=== PATIENT | female | born 1955 | race Caucasian/White ===

== ENCOUNTER 2019-11-08 08:27 | Inpatient (IN) | payer BC ==
[2019-11-08] MEDS ORDERED: cefTRIAXone\\ROCEPHIN 2 GM VIAL ONE (08:46)
[2019-11-08 09:46] LABS: CKMB 2.1 ng/mL (0-6.6)
[2019-11-08] MEDS ORDERED: Diabetic Tussin 200 MG/10 ML UDCUP PO PRN (10:59)
[2019-11-08] MEDS ORDERED: Metoclopramide HCl 10 MG/2 ML VIAL IVP PRN (10:59)
[2019-11-08] MEDS ORDERED: Loperamide HCl 2 MG CAP PO PRN (10:59)
[2019-11-08] MEDS ORDERED: Sodium Chloride 0.65% Nasal 44 ML BOT EA NARE PRN (10:59)
[2019-11-08] MEDS ORDERED: Nitroglycerin 0.4 MG TAB (25 Tab Bottle) SL PRN (10:59)
[2019-11-08] MEDS ORDERED: Cepastat Lozenges 1 LOZ PO PRN (10:59)
[2019-11-08] MEDS ORDERED: Senokot S 8.6-50 MG TAB PO PRN (10:59)
[2019-11-08] MEDS ORDERED: Loratadine 10 MG TAB PO PRN (10:59)
[2019-11-08] MEDS ORDERED: Calcium Carbonate 500 MG ChewTAB PO PRN (10:59)
[2019-11-08] MEDS ORDERED: Bisacodyl 10 MG SUPP PR PRN (10:59)
[2019-11-08] MEDS ORDERED: Artificial Tears 18 DROP/0.9 ML EA EYE PRN (10:59)
[2019-11-08 11:07] VITALS: BMI 29.9
[2019-11-08 12:15] LABS: Troponin I 0.197 ng/mL (< 0.028)
[2019-11-08] MEDS ORDERED: Azithromycin 500 MG in Sodium Chloride 0.9% 250 ML 250 ML IVPB SCH (13:00)
--- NOTE | 2019-11-08 14:09 | HP ---
PRIMARY CARE PHYSICIAN: Dr. Partha Crowley. REASON FOR ADMISSION: Transferred from [facility] for pneumonia. HISTORY OF PRESENT ILLNESS: A 64-year-old female with past medical history of hypertension and tobacco abuse disorder, who presented to [facility] for fever, cough, and shortness of breath. Over there, the patient was having tachycardia and she was saturating 90% on 4 L nasal cannula. The patient has slightly elevated D-dimer, and that is why a CT angiography was obtained, which was negative for pulmonary embolism, but it did show coronary artery calcification, pulmonary hypertension, and bronchial wall thickening consistent with bronchiolitis. The patient was treated with antibiotic therapy and respiratory therapy, and subsequently, she was transferred to our hospital for higher level of care. The patient was not complaining of any chest pain, but she was sick for almost 3 days. Prior to that, the patient did not have any upper or lower respiratory symptoms, and she does not have any flu vaccine or pneumonia vaccination, and she continued to smoke about 1 pack per day. She is not aware of any her oxygen saturation at home, but in the emergency room, CT angiography showed pulmonary hypertension. She denies any lower extremity edema, orthopnea, or PND. REVIEW OF SYSTEMS: CONSTITUTIONAL: Negative for weight loss or gain, ability to conduct usual activities. SKIN: Negative for rash, itching. EYES: Negative for double vision, pain. ENT/MOUTH: Negative for nose bleeding, neck stiffness, pain, tenderness. CARDIOVASCULAR: Negative for palpitations, dyspnea on exertion, orthopnea. RESPIRATORY: Negative for shortness of breath, wheezing, cough, hemoptysis, fever or night sweats. GASTROINTESTINAL: Negative for poor appetite, abdominal pain, heartburn, nausea, vomiting, constipation, or diarrhea. GENITOURINARY: Negative for urgency, frequency, dysuria, nocturia. MUSCULOSKELETAL: Negative for pain, swelling. NEUROLOGIC/PSYCHIATRIC: Negative for anxiety, depression. ALLERGY/IMMUNOLOGIC: Negative for skin rash, bleeding tendency. Please see my HPI for pertinent positives and negatives. All other review of systems reviewed and negative except as mentioned in HPI. CURRENT HOME MEDICATIONS: 1. Tramadol 50 mg q.6 hourly p.r.n. 2. Amlodipine 5 mg daily. 3. Metoprolol 50 mg in the morning and 25 mg in the evening. ALLERGIES: DETROL AND FLAGYL. PAST MEDICAL HISTORY: Tobacco abuse disorder, hypertension, asthma. PAST SURGICAL HISTORY: Hysterectomy, ankle surgery, bilateral knee surgery. PAST PSYCHIATRIC HISTORY: Reviewed and negative. SOCIAL HISTORY: The patient is smoking over one pack per day. She denies any illicit drug abuse. She drinks alcohol occasionally. FAMILY HISTORY: No strong family history of premature coronary artery disease, stroke, or cancer. EMERGENCY ROOM COURSE: The patient has received Rocephin 2 g. PHYSICAL EXAMINATION: VITAL SIGNS: On arrival, blood pressure 124/83, pulse 103, respiratory rate 20, temperature 98.6, saturation 94% on 4 L oxygen. Weight 73.6 kg. GENERAL: The patient is currently alert, awake, in no acute distress. HEENT: Head; normocephalic and atraumatic. Eyes; pupils are round, reactive to light. Extraocular muscle intact. ENT; oropharynx within normal limits. Moist mucous membranes. No oral lesion. No pharyngeal erythema. No exudate. NECK: Supple. No JVD. No meningeal signs of irritation. LUNGS: Bilateral end-expiratory wheezing heard. No wheeze. No rhonchi. CARDIAC: S1 and S2 regular. Tachycardia. No murmur. No gallop. No rub. ABDOMEN: Soft, bowel sounds present, nontender, nondistended. No organomegaly. No mass. EXTREMITIES: No edema. NEUROLOGIC: Nonfocal examination. SIGNIFICANT LABORATORY DATA: CT angiography showing no pulmonary embolism, coronary artery calcification, cardiomegaly, dilated pulmonary artery, bronchial wall thickening, and right infrahilar shotty lymphadenopathy. Chest x-ray showing mild interstitial prominence. CBC; WBC of 16.8, hemoglobin 13.7, MCV 103, platelets 205. BMP; sodium 132, potassium 4.0, chloride 94, carbon dioxide 28, BUN 9, creatinine 0.65, glucose 116, calcium 8.7. Lactic acid 0.9. LFT; AST 29, ALT 26, alkaline phosphatase 3.7. Troponin 0.127 and then 0.211 and then 0.197. BNP 130.1. Influenza A and B negative. ASSESSMENT AND PLAN: 1. Acute respiratory failure with hypoxia. 2. Pneumonia. 3. Tobacco abuse disorder. 4. Type [address] elevation. 5. Hyponatremia. 6. Pulmonary hypertension. 7. Macrocytosis. 8. Hypertension. PLAN: Admission to medical floor. Echocardiography to assess EF and other structural abnormality. Continue aspirin 325 mg p.o. daily, empiric antibiotic therapy with Rocephin and azithromycin. We will continue patient's home medication, DVT prophylaxis Lovenox 40 mg subcu daily, GI prophylaxis, Pepcid 20 mg p.o. b.i.d. CODE STATUS: The patient is full code. DISPOSITION PLAN: Based on clinical course, we are expecting the patient's stay in hospital more than 2 midnights. Plan of care discussed with the patient in detail. Job ID: [id number]
[2019-11-08 15:03] LABS: Troponin I 0.193 ng/mL (< 0.028)
[2019-11-08] MEDS: Acetaminophen 325 MG TAB PO PRN (17:59)
[2019-11-08] MEDS: Mometasone/Formoterol 120 PUFF INHALER INH SCH (18:45)
[2019-11-08] MEDS: Famotidine 20 MG TAB PO SCH (20:30)
[2019-11-08] MEDS: Metoprolol Tartrate 50 MG TAB PO SCH (20:31)
[2019-11-08] MEDS ORDERED: Metoprolol Tartrate 25 MG TAB PO SCH (21:00)
[2019-11-09] MEDS: Azithromycin 500 MG in Sodium Chloride 0.9% 250 ML 250 ML IVPB SCH (06:04)
[2019-11-09 06:09] LABS: ALT (SGPT) 25 U/L (8-55); AST (SGOT) 33 U/L (5-34); Albumin 3.2 g/dL (3.4-4.8); Alkaline Phosphatase 62 U/L (40-110); Anion Gap 11 mmol/L (10-20); BUN (Urea Nitrogen) 7 mg/dL (9.8-20.1); Bilirubin, Total 0.2 mg/dL (0.2-1.2); Calc. Creatinine Clearance 125 mL/min (70-130); Carbon Dioxide 33 mmol/L (23-31); Chloride 99 mmol/L (98-107); Estimated GFR-MDRD Greater than 90; Globulin 3.2 g/dL (2.4-3.5); Glucose 98 mg/dL (80-115); Potassium 4.5 mmol/L (3.5-5.1); Protein, Total 6.4 g/dL (6.0-8.3); Sodium 138 mmol/L (136-145)
[2019-11-09 06:24] LABS: Band 14 % (5-11); Eosinophils 1 % (0-10); Hemoglobin 13.5 g/dL (12.0-16.0); Lymphocytes 5 % (21-51); MDiff Complete? YES; Mean Corpuscular HGB CONC 30.4 g/dL (32.0-36.0); Mean Corpuscular Hemoglobin 31.5 pg (27.0-31.0); Mean Platelet Volume 8.8 fL (7.4-10.4); Monocytes 8 % (0-10); Neutrophil 72 % (42-75); Platelet Count 201 thou/uL (130-400); Platelet Morphology Comment Appears Adequate; RBC Distribution Width 11.6 % (11.5-14.5); Red Blood Cell (RBC) Count 4.29 mill/uL (4.20-5.40)
[2019-11-09] MEDS: Mometasone/Formoterol 120 PUFF INHALER INH SCH ×2 (07:12→18:49)
[2019-11-09] MEDS: cefTRIAXone\\ROCEPHIN 1 GM in Sodium Chloride 0.9% 100 ML IVPB SCH (08:09)
[2019-11-09] MEDS: Metoprolol Tartrate 100 MG TAB PO SCH (08:17)
[2019-11-09] MEDS: Famotidine 20 MG TAB PO SCH ×2 (08:18→20:20)
[2019-11-09] MEDS: Enoxaparin Sodium 40 MG/0.4 ML SYRINGE SC SCH (08:18)
[2019-11-09] MEDS: Aspirin 325 MG TAB PO SCH (08:18)
[2019-11-09] MEDS: Acetaminophen 325 MG TAB PO PRN ×2 (08:24→20:21)
[2019-11-09] MEDS: Benzonatate 100 MG CAP PO PRN (08:25)
[2019-11-09] MEDS ORDERED: Amlodipine 5 MG TAB PO SCH (09:00)
--- NOTE | 2019-11-09 12:36 | PDOC.HOSPP ---
- Subjective Encounter Date: 11/09/19 Encounter Time: 08:15 Subjective: Patient seen and examined. No new complaints. No overnight events, still has cough and shortness of breath - Objective Vital Signs & Weight: Vital Signs (12 hours) Temp Pulse Resp BP Pulse Ox 11/09/19 11:00 98.3 F 80 20 136/68 94 L 11/09/19 08:00 98 11/09/19 07:26 99.2 F 103 H 20 154/81 H 100 11/09/19 07:15 105 H 18 96 11/09/19 07:12 105 H 18 96 11/09/19 04:15 98.6 F 97 20 166/77 H 93 L 11/09/19 00:52 98.5 F 73 18 134/74 98 Weight Weight 158 lb 3 oz I&O: 11/08/19 11/09/19 11/10/19 06:59 06:59 06:59 Intake Total 605 480 Balance 605 480 Result Diagrams: 11/09/19 05:26 11/09/19 05:26 Hospitalist ROS - Review of Systems Eyes: denies: pain, vision change, conjunctivae inflammation, eyelid inflammation, redness, other ENT: denies: ear pain, ear discharge, nose pain, nose discharge, nose congestion , mouth pain, mouth swelling, throat pain, throat swelling, other Respiratory: reports: cough, shortness of breath. denies: dry, hemoptysis, SOB with excertion, pleuritic pain, sputum, wheezing, other Cardiovascular: denies: chest pain, palpitations, orthopnea, paroxysmal noc. dyspnea, edema, light headedness, other Gastrointestinal: denies: nausea, vomiting, abdominal pain, diarrhea, constipation, melena, hematochezia, other Genitourinary: denies: dysuria, frequency, incontinence, hematuria, retention, other Musculoskeletal: denies: neck pain, shoulder pain, arm pain, back pain, hand pain, leg pain, foot pain, other - Medication Medications: Active Medications Generic Name Dose Route Start Last Admin Trade Name Freq PRN Reason Stop Dose Admin Acetaminophen 650 mg 11/08/19 10:59 11/09/19 08:24 Tylenol PO 650 mg Q4H PRN Administration Headache/Fever/Mild Pain (1-3) Albuterol/Ipratropium 3 ml 11/08/19 10:59 11/09/19 07:15 Duoneb NEB 3 ml [id number] PRN Administration SOB &/or Wheezing Aspirin 325 mg 11/09/19 09:00 11/09/19 08:18 Aspirin PO 325 mg DAILY VINCENT Administration Benzonatate 100 mg 11/08/19 10:59 11/09/19 08:25 Tessalon PO 100 mg Q6H PRN Administration Cough Enoxaparin Sodium 40 mg 11/09/19 09:00 11/09/19 08:18 Lovenox SC 40 mg 0900 VINCENT Administration Famotidine 20 mg 11/08/19 21:00 11/09/19 08:18 Pepcid PO 20 mg BID VINCENT Administration Ceftriaxone Sodium 1 gm/ 100 mls @ 200 mls/hr 11/09/19 09:00 11/09/19 08:09 Sodium Chloride IVPB 100 mls Q24HR VINCENT Administration Azithromycin 500 mg/ Sodium 250 mls @ 250 mls/hr 11/09/19 07:00 11/09/19 06: 04 Chloride IVPB 250 mls 0700 VINCENT Administration Loratadine 10 mg 11/08/19 10:59 11/09/19 08:24 Claritin PO 10 mg DAILYPRN PRN Administration Sinus Symptoms Metoprolol Tartrate 50 mg 11/08/19 21:00 11/08/19 20:31 Lopressor PO 50 mg QPM VINCENT Administration Metoprolol Tartrate 100 mg 11/09/19 09:00 11/09/19 08:17 Lopressor PO 100 mg QAM VINCENT Administration Mometasone Furoate/Formoterol Fumar 2 puff 11/08/19 18:30 11/09/19 07:12 Dulera 100 Mcg/5 Mcg Inhaler INH 2 puff BID-RT VINCENT Administration - Exam General Appearance: NAD, awake alert Eye: PERRL, anicteric sclera ENT: normocephalic atraumatic, no oropharyngeal lesions Neck: supple, symmetric, no JVD, no thyromegaly Heart: RRR, no murmur, no gallops, no rubs Respiratory: rhonchi, wheezes Gastrointestinal: soft, non-tender, non-distended, normal bowel sounds Extremities: no cyanosis, no clubbing Skin: normal turgor, no lesions Neurological: no focal deficits Musculoskeletal: normal tone, normal strength Psychiatric: normal affect, normal behavior Hosp A/P (1) COPD exacerbation Code(s): J44.1 - CHRONIC OBSTRUCTIVE PULMONARY DISEASE W (ACUTE) EXACERBATION Status: Acute (2) Acute respiratory failure with hypoxia Code(s): J96.01 - ACUTE RESPIRATORY FAILURE WITH HYPOXIA Status: Acute (3) Acute bronchitis Code(s): J20.9 - ACUTE BRONCHITIS, UNSPECIFIED Status: Acute Qualifiers: Bronchitis organism: unspecified organism Qualified Code(s): J20.9 - Acute bronchitis, unspecified (4) Demand ischemia Code(s): I24.8 - OTHER FORMS OF ACUTE ISCHEMIC HEART DISEASE Status: Acute (5) Hypertension Code(s): I10 - ESSENTIAL (PRIMARY) HYPERTENSION Status: Chronic (6) Tobacco abuse Code(s): Z72.0 - TOBACCO USE Status: Chronic (7) Macrocytosis Code(s): D75.89 - OTHER SPECIFIED DISEASES OF BLOOD AND BLOOD-FORMING ORGANS Status: Chronic - Plan old records reviewed/req, continue antibiotics, respiratory therapy 11/09/19 continue rocephin and azithromycin continue steroid, optimum therapy for copd
[2019-11-09] MEDS: traMADol HCl 50 MG TAB PO PRN (20:21)
[2019-11-09] MEDS: Zolpidem Tartrate 5 MG TAB PO PRN (20:21)
[2019-11-09] MEDS: Metoprolol Tartrate 50 MG TAB PO SCH (20:21)
[2019-11-09] MEDS: Guaifenesin DM 100-10/5 ML UDCUP PO PRN (20:21)
[2019-11-09] MEDS: methylPREDNISolone Sod Succ 40 MG VIAL IVP SCH (21:33)
[2019-11-10] MEDS ORDERED: Metoclopramide HCl 10 MG TAB PO PRN (01:46)
[2019-11-10] MEDS: Azithromycin 500 MG in Sodium Chloride 0.9% 250 ML 250 ML IVPB SCH (06:16)
[2019-11-10] MEDS: methylPREDNISolone Sod Succ 40 MG VIAL IVP SCH ×4 (06:16→23:09)
[2019-11-10] MEDS: Acetaminophen 325 MG TAB PO PRN ×2 (06:22→21:11)
[2019-11-10] MEDS: Mometasone/Formoterol 120 PUFF INHALER INH SCH ×2 (06:38→18:17)
[2019-11-10] MEDS: cefTRIAXone\\ROCEPHIN 1 GM in Sodium Chloride 0.9% 100 ML IVPB SCH (09:12)
[2019-11-10] MEDS: Famotidine 20 MG TAB PO SCH ×2 (09:13→20:05)
[2019-11-10] MEDS: Aspirin 325 MG TAB PO SCH (09:13)
[2019-11-10] MEDS: Metoprolol Tartrate 100 MG TAB PO SCH (09:13)
[2019-11-10] MEDS: Enoxaparin Sodium 40 MG/0.4 ML SYRINGE SC SCH (09:14)
[2019-11-10] MEDS: guaiFENesin ER 600 MG TAB PO SCH ×2 (09:15→20:05)
[2019-11-10] MEDS: Benzonatate 100 MG CAP PO PRN (12:52)
--- NOTE | 2019-11-10 13:15 | PDOC.HOSPP ---
- Subjective Encounter Date: 11/10/19 Encounter Time: 09:30 Subjective: Patient seen and examined. No new complaints. No overnight events.pt is wheezing - Objective Vital Signs & Weight: Vital Signs (12 hours) Temp Pulse Resp BP Pulse Ox 11/10/19 12:10 98.2 F 83 22 H 165/90 H 95 11/10/19 11:09 76 18 96 11/10/19 08:00 94 L 11/10/19 07:32 98.9 F 105 H 22 H 162/88 H 94 L 11/10/19 06:40 96 18 94 L 11/10/19 06:38 102 H 18 96 11/10/19 04:07 99.2 F 104 H 18 160/81 H 95 Weight Weight 158 lb 3 oz I&O: 11/09/19 11/10/19 11/11/19 06:59 06:59 06:59 Intake Total 605 1270 480 Balance 605 1270 480 Result Diagrams: 11/09/19 05:26 11/09/19 05:26 Hospitalist ROS - Review of Systems ENT: denies: ear pain, ear discharge, nose pain, nose discharge, nose congestion , mouth pain, mouth swelling, throat pain, throat swelling, other Respiratory: reports: cough, shortness of breath, SOB with excertion. denies: dry, hemoptysis, pleuritic pain, sputum, wheezing, other Cardiovascular: denies: chest pain, palpitations, orthopnea, paroxysmal noc. dyspnea, edema, light headedness, other Gastrointestinal: denies: nausea, vomiting, abdominal pain, diarrhea, constipation, melena, hematochezia, other Genitourinary: denies: dysuria, frequency, incontinence, hematuria, retention, other Musculoskeletal: denies: neck pain, shoulder pain, arm pain, back pain, hand pain, leg pain, foot pain, other - Medication Medications: Active Medications Generic Name Dose Route Start Last Admin Trade Name Freq PRN Reason Stop Dose Admin Acetaminophen 650 mg 11/08/19 10:59 11/10/19 06:22 Tylenol PO 650 mg Q4H PRN Administration Headache/Fever/Mild Pain (1-3) Albuterol/Ipratropium 3 ml 11/09/19 21:00 11/10/19 11:09 Duoneb NEB 3 ml [id number] PRN Administration SOB &/or Wheezing Aspirin 325 mg 11/09/19 09:00 11/10/19 09:13 Aspirin PO 325 mg DAILY VINCENT Administration Benzonatate 100 mg 11/08/19 10:59 11/10/19 12:52 Tessalon PO 100 mg Q6H PRN Administration Cough Enoxaparin Sodium 40 mg 11/09/19 09:00 11/10/19 09:14 Lovenox SC 40 mg 0900 VINCENT Administration Famotidine 20 mg 11/08/19 21:00 11/10/19 09:13 Pepcid PO 20 mg BID VINECNT Administration Guaifenesin 600 mg 11/10/19 09:00 11/10/19 09:15 Mucinex PO 600 mg Q12HR VINCENT Administration Guaifenesin/Dextromethorphan 15 ml 11/08/19 10:59 11/09/19 20:21 Robitussin Dm PO 15 ml Q4H PRN Administration Cough Ceftriaxone Sodium 1 gm/ 100 mls @ 200 mls/hr 11/09/19 09:00 11/10/19 09:12 Sodium Chloride IVPB 100 mls Q24HR VINCENT Administration Azithromycin 500 mg/ Sodium 250 mls @ 250 mls/hr 11/09/19 07:00 11/10/19 06: 16 Chloride IVPB 250 mls 0700 VINCENT Administration Loratadine 10 mg 11/08/19 10:59 11/09/19 08:24 Claritin PO 10 mg DAILYPRN PRN Administration Sinus Symptoms Methylprednisolone Sodium Succinate 40 mg 11/10/19 12:00 11/10/19 12:49 Solu-Medrol IVP 40 mg Q6HR VINCENT Administration Metoprolol Tartrate 50 mg 11/08/19 21:00 11/09/19 20:21 Lopressor PO 50 mg QPM VINCENT Administration Metoprolol Tartrate 100 mg 11/09/19 09:00 11/10/19 09:13 Lopressor PO 100 mg QAM VINCENT Administration Mometasone Furoate/Formoterol Fumar 2 puff 11/08/19 18:30 11/10/19 06:38 Dulera 100 Mcg/5 Mcg Inhaler INH 2 puff BID-RT VINCENT Administration Tramadol HCl 50 mg 11/08/19 10:59 11/09/19 20:21 Ultram PO 50 mg Q4H PRN Administration Moderate Pain (4-6) Zolpidem Tartrate 5 mg 11/08/19 10:59 11/09/19 20:21 Ambien PO 5 mg HSPRN PRN Administration Insomnia - Exam General Appearance: NAD, awake alert Eye: PERRL, anicteric sclera ENT: normocephalic atraumatic, no oropharyngeal lesions Neck: supple, symmetric, no JVD, no thyromegaly Heart: RRR, no murmur, no gallops, no rubs Respiratory: rhonchi, wheezes Gastrointestinal: soft, non-tender, non-distended, normal bowel sounds Extremities: no cyanosis, no clubbing, no edema Skin: normal turgor, no lesions Neurological: no focal deficits Musculoskeletal: normal tone, normal strength Psychiatric: normal affect, normal behavior Hosp A/P (1) COPD exacerbation Code(s): J44.1 - CHRONIC OBSTRUCTIVE PULMONARY DISEASE W (ACUTE) EXACERBATION Status: Acute (2) Acute respiratory failure with hypoxia Code(s): J96.01 - ACUTE RESPIRATORY FAILURE WITH HYPOXIA Status: Acute (3) Acute bronchitis Code(s): J20.9 - ACUTE BRONCHITIS, UNSPECIFIED Status: Acute Qualifiers: Bronchitis organism: unspecified organism Qualified Code(s): J20.9 - Acute bronchitis, unspecified (4) Demand ischemia Code(s): I24.8 - OTHER FORMS OF ACUTE ISCHEMIC HEART DISEASE Status: Acute (5) Hypertension Code(s): I10 - ESSENTIAL (PRIMARY) HYPERTENSION Status: Chronic (6) Tobacco abuse Code(s): Z72.0 - TOBACCO USE Status: Chronic (7) Macrocytosis Code(s): D75.89 - OTHER SPECIFIED DISEASES OF BLOOD AND BLOOD-FORMING ORGANS Status: Chronic - Plan old records reviewed/req, continue antibiotics, respiratory therapy 11/09/19 continue rocephin and azithromycin continue steroid, optimum therapy for copd 11/10/19 add solumedrol add mucinex currently on optimum copd treatment may need home oxygen needs more time to recover
[2019-11-10] MEDS: traMADol HCl 50 MG TAB PO PRN ×2 (15:18→21:11)
[2019-11-10] MEDS: HYDROcodone/Acetaminophen 5/325 mg Tablet PO PRN (18:37)
[2019-11-10] MEDS: hydrALAZINE 20 MG/ML VIAL SLOW IVP PRN (18:42)
[2019-11-10] MEDS: Zolpidem Tartrate 5 MG TAB PO PRN (21:08)
[2019-11-10] MEDS: Metoprolol Tartrate 50 MG TAB PO SCH (21:08)
[2019-11-10] MEDS: Guaifenesin DM 100-10/5 ML UDCUP PO PRN (21:14)
[2019-11-11] MEDS: methylPREDNISolone Sod Succ 40 MG VIAL IVP SCH ×3 (05:31→17:22)
[2019-11-11] MEDS: Azithromycin 500 MG in Sodium Chloride 0.9% 250 ML 250 ML IVPB SCH (05:31)
[2019-11-11 05:32] LABS: Anion Gap 12 mmol/L (10-20); BUN (Urea Nitrogen) 9 mg/dL (9.8-20.1); Calc. Creatinine Clearance 125 mL/min (70-130); Calcium 9.1 mg/dL (7.8-10.44); Carbon Dioxide 36 mmol/L (23-31); Chloride 92 mmol/L (98-107); Estimated GFR-MDRD Greater than 90; Glucose 122 mg/dL (80-115); Potassium 4.1 mmol/L (3.5-5.1); Sodium 136 mmol/L (136-145)
[2019-11-11] MEDS: traMADol HCl 50 MG TAB PO PRN ×2 (05:41→19:48)
[2019-11-11] MEDS: Acetaminophen 325 MG TAB PO PRN ×2 (05:42→19:47)
[2019-11-11 06:02] LABS: #Monocytes 0.9 thou/uL (0.11-0.59); #Neutrophils 10.7 thou/uL (1.40-6.50); %Basophils 0.3 % (0.0-1.0); %Eosinophils 0.1 % (0.0-10.0); %Monocytes 6.9 % (0.0-10.0); %Neutrophils 84.7 % (42.0-75.0); Hemoglobin 14.1 g/dL (12.0-16.0); Mean Corpuscular HGB CONC 28.9 g/dL (32.0-36.0); Mean Corpuscular Hemoglobin 29.5 pg (27.0-31.0); Mean Platelet Volume 8.8 fL (7.4-10.4); Platelet Count 234 thou/uL (130-400); RBC Distribution Width 11.4 % (11.5-14.5); Red Blood Cell (RBC) Count 4.78 mill/uL (4.20-5.40); White Blood Cell (WBC) Count 12.7 thou/uL (4.8-10.8)
[2019-11-11 06:03] LABS: MDiff Complete? YES; Stomatocytes SLIGHT = 2-5 cells (100X) (0-1/hpf)
[2019-11-11] MEDS: Mometasone/Formoterol 120 PUFF INHALER INH SCH ×2 (06:59→18:03)
[2019-11-11] MEDS: Famotidine 20 MG TAB PO SCH ×2 (08:19→19:47)
[2019-11-11] MEDS: guaiFENesin ER 600 MG TAB PO SCH ×2 (08:19→19:49)
[2019-11-11] MEDS: Enoxaparin Sodium 40 MG/0.4 ML SYRINGE SC SCH (08:19)
[2019-11-11] MEDS: Aspirin 325 MG TAB PO SCH (08:19)
[2019-11-11] MEDS: Metoprolol Tartrate 100 MG TAB PO SCH (08:34)
--- NOTE | 2019-11-11 09:31 | PDOC.HOSPP ---
- Subjective Encounter Date: 11/11/19 Encounter Time: 08:55 Subjective: Patient seen and examined. No new complaints. No overnight events - Objective Vital Signs & Weight: Vital Signs (12 hours) Temp Pulse Resp BP Pulse Ox 11/11/19 08:34 90 L 11/11/19 08:13 98.6 F 93 20 128/76 90 L 11/11/19 06:56 94 18 97 11/11/19 05:30 98.6 F 96 18 111/76 95 11/11/19 00:00 98.4 F 86 20 136/95 H 94 L Weight Admit Weight 158 lb Weight 158 lb 3 oz I&O: 11/10/19 11/11/19 11/12/19 06:59 06:59 06:59 Intake Total 1270 2505 Balance 1270 2505 Result Diagrams: 11/11/19 04:54 11/11/19 04:54 Hospitalist ROS - Review of Systems Eyes: denies: pain, vision change, conjunctivae inflammation, eyelid inflammation, redness, other ENT: denies: ear pain, ear discharge, nose pain, nose discharge, nose congestion , mouth pain, mouth swelling, throat pain, throat swelling, other Respiratory: reports: cough, shortness of breath, wheezing. denies: dry, hemoptysis, SOB with excertion, pleuritic pain, sputum, other Cardiovascular: denies: chest pain, palpitations, orthopnea, paroxysmal noc. dyspnea, edema, light headedness, other Gastrointestinal: denies: nausea, vomiting, abdominal pain, diarrhea, constipation, melena, hematochezia, other Genitourinary: denies: dysuria, frequency, incontinence, hematuria, retention, other Musculoskeletal: denies: neck pain, shoulder pain, arm pain, back pain, hand pain, leg pain, foot pain, other Skin: denies: rash, lesions, winter, bruising, other - Medication Medications: Active Medications Generic Name Dose Route Start Last Admin Trade Name Freq PRN Reason Stop Dose Admin Acetaminophen 650 mg 11/08/19 10:59 11/11/19 05:42 Tylenol PO 650 mg Q4H PRN Administration Headache/Fever/Mild Pain (1-3) Hydrocodone Bitart/Acetaminophen 1 tab 11/08/19 10:59 11/10/19 18:37 Datil 5/325 PO 1 tab Q4H PRN Administration Moderate Pain (4-6) Albuterol/Ipratropium 3 ml 11/09/19 21:00 11/11/19 06:56 Duoneb NEB 3 ml [id number] PRN Administration SOB &/or Wheezing Aspirin 325 mg 11/09/19 09:00 11/11/19 08:19 Aspirin PO 325 mg DAILY VINCENT Administration Benzonatate 100 mg 11/08/19 10:59 11/10/19 12:52 Tessalon PO 100 mg Q6H PRN Administration Cough Enoxaparin Sodium 40 mg 11/09/19 09:00 11/11/19 08:19 Lovenox SC 40 mg 0900 VINCENT Administration Famotidine 20 mg 11/08/19 21:00 11/11/19 08:19 Pepcid PO 20 mg BID VINCENT Administration Guaifenesin 600 mg 11/10/19 09:00 11/11/19 08:19 Mucinex PO 600 mg Q12HR VINCENT Administration Guaifenesin/Dextromethorphan 15 ml 11/08/19 10:59 11/10/19 21:14 Robitussin Dm PO 15 ml Q4H PRN Administration Cough Hydralazine HCl 10 mg 11/08/19 10:59 11/10/19 18:42 Apresoline SLOW IVP 10 mg Q4H PRN Administration SBP > 180 and HR < 70 Loratadine 10 mg 11/08/19 10:59 11/09/19 08:24 Claritin PO 10 mg DAILYPRN PRN Administration Sinus Symptoms Methylprednisolone Sodium Succinate 40 mg 11/10/19 12:00 11/11/19 05:31 Solu-Medrol IVP 40 mg Q6HR VINCENT Administration Metoprolol Tartrate 50 mg 11/08/19 21:00 11/10/19 21:08 Lopressor PO 50 mg QPM VINCENT Administration Metoprolol Tartrate 100 mg 11/09/19 09:00 11/11/19 08:34 Lopressor PO 100 mg QAM VINCENT Administration Mometasone Furoate/Formoterol Fumar 2 puff 11/08/19 18:30 11/11/19 06:59 Dulera 100 Mcg/5 Mcg Inhaler INH 2 puff BID-RT VINCENT Administration Tramadol HCl 50 mg 11/08/19 10:59 11/11/19 05:41 Ultram PO 50 mg Q4H PRN Administration Moderate Pain (4-6) Zolpidem Tartrate 5 mg 11/08/19 10:59 11/10/19 21:08 Ambien PO 5 mg HSPRN PRN Administration Insomnia - Exam General Appearance: NAD, awake alert Eye: PERRL, anicteric sclera ENT: normocephalic atraumatic, no oropharyngeal lesions Neck: supple, symmetric, no JVD, no thyromegaly Heart: RRR, no murmur, no gallops, no rubs Respiratory: no rales, wheezes Gastrointestinal: soft, non-tender, non-distended, normal bowel sounds Extremities: no cyanosis, no clubbing, no edema Skin: normal turgor, no lesions Neurological: no focal deficits Musculoskeletal: normal tone, normal strength Psychiatric: normal affect, normal behavior, A&O x 3 Hosp A/P (1) COPD exacerbation Code(s): J44.1 - CHRONIC OBSTRUCTIVE PULMONARY DISEASE W (ACUTE) EXACERBATION Status: Acute (2) Acute respiratory failure with hypoxia Code(s): J96.01 - ACUTE RESPIRATORY FAILURE WITH HYPOXIA Status: Acute (3) Acute bronchitis Code(s): J20.9 - ACUTE BRONCHITIS, UNSPECIFIED Status: Acute Qualifiers: Bronchitis organism: unspecified organism Qualified Code(s): J20.9 - Acute bronchitis, unspecified (4) Demand ischemia Code(s): I24.8 - OTHER FORMS OF ACUTE ISCHEMIC HEART DISEASE Status: Acute (5) Hypertension Code(s): I10 - ESSENTIAL (PRIMARY) HYPERTENSION Status: Chronic (6) Tobacco abuse Code(s): Z72.0 - TOBACCO USE Status: Chronic (7) Macrocytosis Code(s): D75.89 - OTHER SPECIFIED DISEASES OF BLOOD AND BLOOD-FORMING ORGANS Status: Chronic - Plan old records reviewed/req, plan discussed w/ family, continue antibiotics, addiction social worker, respiratory therapy 11/09/19 continue rocephin and azithromycin continue steroid, optimum therapy for copd 11/10/19 add solumedrol add mucinex currently on optimum copd treatment may need home oxygen needs more time to recover 11/11/19 change antibiotic to oral levaquin continue solumedrol evaluate for home oxygen she is not ready for discharge today Medication reviewed and continue to provide symptomatic care and supportive care discussed with smoking cessation counselling given
--- NOTE | 2019-11-11 14:40 | PQF ---
CLINICAL DOCUMENTATION IMPROVEMENT CLARIFICATION FORM: ICD-10 Updated PLEASE DO AN ADDENDUM TO THE PROGRESS NOTE WITH ANY DOCUMENTATION UPDATES OR ADDITIONS AND CARRY THROUGH TO DC SUMMARY. THANK YOU. DATE: 11/11/19 ATTN: DR. KONG Please exercise your independent, professional judgment in responding to the clarification form. Clinical indicators are provided on the bottom of this form for your review Please check appropriate box(es): [ ] Sepsis due to: (Pna, UTI, gangrenous gall bladder, etc.) Due to: [ ] Device (please specify) [ ] Implant [ ] Graft [ ] Infusion [ ] SIRS due to non-infectious process (please specify etiology) [ ] with organ dysfunction [ ] without organ dysfunction [ ] Severe sepsis with acute organ dysfunction of: (Examples: respiratory failure, encephalopathy, acute kidney failure, other) [ ] Septic Shock [ ] Localized infection without sepsis [ x ] Other diagnosis _no sepsis [ ] Unable to determine In addition, please specify: Present on Admission (POA): [ ] Yes [ x ] No [ ] Unable to determine For continuity of documentation, please document condition throughout progress notes and discharge summary. Thank You. CLINICAL INDICATORS - SIGNS / SYMPTOMS / LABS / RESULTS AND LOCATION IN MR ER NOTE: "SEPSIS" PULSE 103 RR 24 WBC 11/09: 15.0 BANDS 11/09: 14 RISKS: PNEUMONIA (H&P 11/08) COPD EXACERBATION (PROGRESS NOTE 11/09) BRONCHITIS (PROGRESS NOTE 11/09) TREATMENT: IV FLUIDS (ER) IV ROCEPHIN (ER-11/10) IV AZITHROMYCIN (11/09-11/11) LEVAQUIN (START 11/12) SAP Exhibitions Curator Crystal Reports Winform Viewer (This form is maintained as a part of the permanent medical record) 2014 [employer]. All Rights Reserved [email or web address] Office: [phone] [facility]
--- NOTE | 2019-11-11 14:48 | PQF ---
CLINICAL DOCUMENTATION IMPROVEMENT CLARIFICATION FORM: ICD-10 Updated PLEASE DO AN ADDENDUM TO THE PROGRESS NOTE WITH ANY DOCUMENTATION UPDATES OR ADDITIONS AND CARRY THROUGH TO DC SUMMARY. THANK YOU. DATE: 11/11/19 ATTN: DR. KONG Please exercise your independent, professional judgment in responding to the clarification form. Clinical indicators are provided on the bottom of this form for your review Please check appropriate box(s) to clarify if the following diagnosis has been ruled in or ruled out: "TYPE [address] ELEVATION" [ x ] Ruled in diagnosis [ ] Continue to treat [ x ] Resolved [ ] Ruled out diagnosis [ ] Cannot rule out diagnosis [ ] Other diagnosis [ ] Unable to determine In addition, please specify: Present on Admission (POA): [ x ] Yes [ ] No [ ] Unable to determine For continuity of documentation, please document condition throughout progress notes and discharge summary. Thank You. CLINICAL INDICATORS - SIGNS / SYMPTOMS / LABS / RESULTS AND LOCATION IN MR H&P 11/08: "TYPE [address] ELEVATION" TROPONINS: 0.211, 0.197, .0193 (11/08) RISKS: COPD EXACERBATION (PROGRESS NOTE 11/09) HYPERTENSION (PROGRESS NOTE 11/09) H/O TOBACCO ABUSE (PROGRESS NOTE 11/09) TREATMENT: SERIAL LABS LOPRESSOR 11/08-PRESENT ASPIRIN (11/09-PRESENT) LOVENOX (11/09-PRESENT) NITROSTAT PRN (ORDERED 11/08) SAP Syrup Mixer Assistant Crystal Reports Winform Viewer (This form is maintained as a part of the permanent medical record) 2014 [employer]. All Rights Reserved [email or web address] Office: [phone] [facility]
[2019-11-11] MEDS: HYDROcodone/Acetaminophen 5/325 mg Tablet PO PRN (15:55)
[2019-11-11] MEDS: Zolpidem Tartrate 5 MG TAB PO PRN (19:49)
[2019-11-11] MEDS: Metoprolol Tartrate 50 MG TAB PO SCH (19:49)
[2019-11-12] MEDS: Acetaminophen 325 MG TAB PO PRN ×3 (00:09→20:21)
[2019-11-12] MEDS: traMADol HCl 50 MG TAB PO PRN ×3 (00:09→20:20)
[2019-11-12] MEDS: methylPREDNISolone Sod Succ 40 MG VIAL IVP SCH ×5 (05:20→23:52)
[2019-11-12] MEDS: Mometasone/Formoterol 120 PUFF INHALER INH SCH ×2 (06:53→18:06)
[2019-11-12] MEDS: Enoxaparin Sodium 40 MG/0.4 ML SYRINGE SC SCH (07:46)
[2019-11-12] MEDS: Aspirin 325 MG TAB PO SCH (07:46)
[2019-11-12] MEDS: guaiFENesin ER 600 MG TAB PO SCH ×2 (07:47→20:19)
[2019-11-12] MEDS: Famotidine 20 MG TAB PO SCH ×2 (07:47→20:20)
[2019-11-12] MEDS: Metoprolol Tartrate 100 MG TAB PO SCH (07:47)
[2019-11-12] MEDS: HYDROcodone/Acetaminophen 5/325 mg Tablet PO PRN ×2 (07:50→16:30)
[2019-11-12] MEDS ORDERED: buPROPion HCl 100 MG TAB PO SCH ×2 (09:38→09:45)
--- NOTE | 2019-11-12 09:52 | PDOC.EVN ---
Event Note - Event Note Event Note: Patient admitted with pneumonia and COPD with acute exacerbation, which have now resolved. Patient with hypoxia O2 saturation 80% on room air will need to go home on oxygen. CM consulted to help set up home O2 prior to D/c. Patient continues to smoke tobacco. Patient on pulmonary specific antibiotics, steroids , and breathing treatments. Transitioned to oral medications. D/c planning ongoing.
[2019-11-12] MEDS: hydrALAZINE 20 MG/ML VIAL SLOW IVP PRN (16:33)
[2019-11-12] MEDS ORDERED: ALPRAZolam 0.25 MG TAB PO PRN (17:06)
[2019-11-12] MEDS ORDERED: Amlodipine 10 MG TAB PO SCH (17:15)
--- NOTE | 2019-11-12 18:04 | PDOC.HOSPP ---
- Subjective Subjective: Seen and examined. Unable to wean from oxygen, will require home oxygen prior to discharge. Blood pressure not controlled, adjusting medications. Discharge planning underway, will plan for tomorrow if blood pressure is better controlled and oxygen delivered at bedside. - Objective Vital Signs & Weight: Vital Signs (12 hours) Temp Pulse Resp BP BP Pulse Ox 11/12/19 17:26 90 114/69 11/12/19 17:23 114/69 11/12/19 16:33 90 177/117 H 11/12/19 15:34 177/117 H 11/12/19 12:00 160/104 H 11/12/19 08:00 92 L 11/12/19 07:26 98.3 F 99 19 173/94 H 92 L 11/12/19 06:54 94 L 11/12/19 06:53 111 H 20 94 L Weight Admit Weight 158 lb Weight 158 lb 3 oz I&O: 11/11/19 11/12/19 11/13/19 06:59 06:59 06:59 Intake Total 2505 1304 Balance 2505 1304 Result Diagrams: 11/11/19 04:54 11/11/19 04:54 Radiology Reviewed by me: Yes Hospitalist ROS - Review of Systems All other systems reviewed; all pertinent +/- noted in HPI/Subj - Medication Medications: Active Medications Generic Name Dose Route Start Last Admin Trade Name Freq PRN Reason Stop Dose Admin Acetaminophen 650 mg 11/08/19 10:59 11/12/19 05:20 Tylenol PO 650 mg Q4H PRN Administration Headache/Fever/Mild Pain (1-3) Hydrocodone Bitart/Acetaminophen 1 tab 11/08/19 10:59 11/12/19 16:30 [place] 5/325 PO 1 tab Q4H PRN Administration Moderate Pain (4-6) Albuterol/Ipratropium 3 ml 11/09/19 21:00 11/11/19 18:02 Duoneb NEB 3 ml [id number] PRN Administration SOB &/or Wheezing Alprazolam 0.25 mg 11/12/19 17:06 11/12/19 17:25 Xanax PO 0.25 mg TIDPRN PRN Administration Anxiety Amlodipine Besylate 10 mg 11/12/19 17:15 11/12/19 17:26 Norvasc PO 11/12/19 19:15 Not Given NOW [facility] Aspirin 325 mg 11/09/19 09:00 11/12/19 07:46 Aspirin PO 325 mg DAILY [facility] Administration Benzonatate 100 mg 11/08/19 10:59 11/10/19 12:52 Tessalon PO 100 mg Q6H PRN Administration Cough Enoxaparin Sodium 40 mg 11/09/19 09:00 11/12/19 07:46 Lovenox SC 40 mg 0900 [facility] Administration Famotidine 20 mg 11/08/19 21:00 11/12/19 07:47 Pepcid PO 20 mg BID [facility] Administration Guaifenesin 600 mg 11/10/19 09:00 11/12/19 07:47 Mucinex PO 600 mg Q12HR [facility] Administration Guaifenesin/Dextromethorphan 15 ml 11/08/19 10:59 11/10/19 21:14 Robitussin Dm PO 15 ml Q4H PRN Administration Cough Hydralazine HCl 10 mg 11/08/19 10:59 11/12/19 16:33 Apresoline SLOW IVP 10 mg Q4H PRN Administration SBP > 180 and HR < 70 Levofloxacin 750 mg 11/12/19 06:00 11/12/19 05:20 Levaquin PO 750 mg 0600 [facility] Administration Loratadine 10 mg 11/08/19 10:59 11/09/19 08:24 Claritin PO 10 mg DAILYPRN PRN Administration Sinus Symptoms Methylprednisolone Sodium Succinate 40 mg 11/10/19 12:00 11/12/19 17:25 Solu-Medrol IVP 40 mg Q6HR [facility] Administration Metoprolol Tartrate 50 mg 11/08/19 21:00 11/11/19 19:49 Lopressor PO 50 mg QPM [facility] Administration Metoprolol Tartrate 100 mg 11/09/19 09:00 11/12/19 07:47 Lopressor PO 100 mg QAM [facility] Administration Mometasone Furoate/Formoterol Fumar 2 puff 11/08/19 18:30 11/12/19 06:53 Dulera 100 Mcg/5 Mcg Inhaler INH 2 puff BID-RT [facility] Administration Tramadol HCl 50 mg 11/08/19 10:59 11/12/19 05:20 Ultram PO 50 mg Q4H PRN Administration Moderate Pain (4-6) Zolpidem Tartrate 5 mg 11/08/19 10:59 11/11/19 19:49 Ambien PO 5 mg HSPRN PRN Administration Insomnia - Exam General Appearance: NAD, awake alert Eye: PERRL ENT: normocephalic atraumatic, moist mucosa Neck: supple, symmetric, no lymphadenopathy Heart: RRR, no murmur, no gallops, no rubs Respiratory: no rales, normal chest expansion, no tachypnea, rhonchi, wheezes ( mild) Gastrointestinal: soft, non-tender, no guarding, no rigidity Extremities: no edema Skin: no lesions, no rashes Neurological: cranial nerve grossly intact, no focal deficits Musculoskeletal: generalized weakness Psychiatric: normal affect, normal behavior, A&O x 3 Hosp A/P (1) Acute bronchitis Code(s): J20.9 - ACUTE BRONCHITIS, UNSPECIFIED Status: Acute Qualifiers: Bronchitis organism: unspecified organism Qualified Code(s): J20.9 - Acute bronchitis, unspecified (2) Acute respiratory failure with hypoxia Code(s): J96.01 - ACUTE RESPIRATORY FAILURE WITH HYPOXIA Status: Acute (3) COPD exacerbation Code(s): J44.1 - CHRONIC OBSTRUCTIVE PULMONARY DISEASE W (ACUTE) EXACERBATION Status: Acute (4) Demand ischemia Code(s): I24.8 - OTHER FORMS OF ACUTE ISCHEMIC HEART DISEASE Status: Acute (5) Hypertension Code(s): I10 - ESSENTIAL (PRIMARY) HYPERTENSION Status: Chronic (6) Macrocytosis Code(s): D75.89 - OTHER SPECIFIED DISEASES OF BLOOD AND BLOOD-FORMING ORGANS Status: Chronic (7) Tobacco abuse Code(s): Z72.0 - TOBACCO USE Status: Chronic - Plan Plan: medical unit discharge planning will require home oxygen delivered to bedside prior to discharge case management consultation requested for oxygen to be set up will transition to oral antibiotics and steroids on discharge adjust blood pressure medication, home amlodipine was restarted blood pressure control prior to discharge blood sugar control continue other home medications as able G.I. prophylaxis DVT prophylaxis
[2019-11-12] MEDS: Metoprolol Tartrate 50 MG TAB PO SCH (20:20)
[2019-11-12] MEDS: Zolpidem Tartrate 5 MG TAB PO PRN (20:21)
[2019-11-12] MEDS: buPROPion HCl 100 MG TAB PO SCH (21:10)
[2019-11-13] MEDS: methylPREDNISolone Sod Succ 40 MG VIAL IVP SCH ×2 (05:08→11:26)
[2019-11-13] MEDS: Acetaminophen 325 MG TAB PO PRN (05:14)
[2019-11-13] MEDS: traMADol HCl 50 MG TAB PO PRN (05:14)
[2019-11-13] MEDS: Mometasone/Formoterol 120 PUFF INHALER INH SCH (07:13)
[2019-11-13] MEDS: buPROPion HCl 100 MG TAB PO SCH (08:38)
[2019-11-13] MEDS: Famotidine 20 MG TAB PO SCH (08:39)
[2019-11-13] MEDS: guaiFENesin ER 600 MG TAB PO SCH (08:39)
[2019-11-13] MEDS: Aspirin 325 MG TAB PO SCH (08:40)
[2019-11-13] MEDS: Enoxaparin Sodium 40 MG/0.4 ML SYRINGE SC SCH (08:40)
[2019-11-13] MEDS: HYDROcodone/Acetaminophen 5/325 mg Tablet PO PRN ×2 (08:45→13:12)
[2019-11-13] MEDS: Metoprolol Tartrate 100 MG TAB PO SCH (08:45)
[2019-11-13] MEDS ORDERED: Amlodipine 10 MG TAB PO SCH (09:00)
[2019-11-13 11:40] VITALS: BP 111/80; TEMP 98
--- NOTE | 2019-11-13 18:33 | DIS ---
DATE OF ADMISSION: 11/08/2019 DATE OF DISCHARGE: 11/13/2019 REASON FOR HOSPITALIZATION: Shortness of breath. SIGNIFICANT FINDINGS: The patient was found to have acute COPD exacerbation. PROCEDURES PERFORMED AND TREATMENTS RENDERED: The patient was admitted to the hospital for close medical management. The patient was started on pulmonary specific antibiotics, IV steroids, inhaled breathing treatments, and with maximum medical therapy, she did improve daily. Unfortunately, throughout the patient's hospitalization, we were unable to wean her from oxygen completely. The patient was evaluated with a resting O2 saturation, which was found to be as low as 80 at rest. Efforts were made with Case Management and the patient's insurance to ensure that oxygen was delivered to bedside prior to discharge. The patient recommended safe for discharge on 11/13/2019. CONDITION ON DISCHARGE: Stable. SPECIFIC INSTRUCTIONS FOR THE PATIENT/FAMILY: 1. The patient is recommended to complete a full course of oral antibiotics and oral steroids for resolution of symptoms. 2. The patient is recommended to abstain from tobacco use completely. 3. The patient is recommended to use Wellbutrin as an aid to stop smoking. 4. The patient is recommended to return to acute care hospital immediately if signs or symptoms return, worsen, or any other new symptoms occur. 5. The patient is recommended to follow up with primary care physician in the next 5 to 7 days. 6. The patient is recommended to use oxygen 2 L nasal cannula continuously, to be weaned in the outpatient setting by primary care physician. DISCHARGE MEDICATIONS: Please see full discharge medication list for details. 1. Levaquin 750 mg one tablet p.o. daily. 2. Medrol Dosepak, use as directed. 3. Wellbutrin 100 mg one tablet p.o. b.i.d. 4. Lactobacillus acidophilus one tablet p.o. t.i.d. 5. Aspirin 81 mg one tablet p.o. daily. 6. Albuterol 2 puffs p.o. q.4 hours p.r.n. shortness of breath or wheezing. 7. Tramadol 50 mg four times per day as needed for pain. 8. Amlodipine 10 mg one tablet p.o. daily. 9. Metoprolol tartrate 50 mg p.o. q.p.m. 10. Metoprolol tartrate 100 mg p.o. q.a.m. 11. Breo Ellipta one puff inhaled daily. Greater than 37 minutes spent coordinating care and discharge process for this patient. Job ID: [id number]
--- NOTE | 2019-11-14 04:29 | PQF ---
[employer] Crystal Reports Winform Viewer ANTOLIN MATTHEWS BRANDON SCHMITT [id number] [id number] CLINICAL DOCUMENTATION CLARIFICATION FORM: POST DISCHARGE Addendum to original discharge summary date: ____ Late entry note date: __ DATE: 11/14/19 ATTN:Brandon Schmitt Please exercise your independent, professional judgment in responding to the clarification form. Clinical indicators are provided on the bottom of this form for your review Can you please further clarify if Pneumonia is ruled in or ruled out? Pneumonia [ XX ] Ruled in diagnosis [ ] Continue to treat [ ] Resolved [ ] Ruled out diagnosis [ ] Cannot rule out diagnosis [ ] Other diagnosis [ ] Unable to determine In addition, please specify: Present on Admission (POA): [ XX ] Yes [ ] No [ ] Unable to determine For continuity of documentation, please document condition throughout progress notes and discharge summary. Thank You. CLINICAL INDICATORS - SIGNS / SYMPTOMS / LABS HP pg3 Dr. Ward- "Chest xray showing mild interstitial prominence" H and P pg.1- transferred from [facility] for pneumonia H and P pg.3 Pneumonia H and P pg.3- CBC WBC of 16.8 Hospitalist PN 11/11 pg.6- COPD exacerbation DS pg.1- Patient has found to have acute COPD exacerbation RISK FACTORS 64 years old- H and P pg.1 acute respiratory failure- H and P pg.3 Type 2 TX- H and P pg.1 Tobacco abuse- Hospitalist PN Acute bronchitis-Hospitalist PN pg.6 TREATMENTS Empiric antibiotics- H and P pg.3 IV fluids- MAR IV steroids- MAR inhaled breathing treatment- DS pg.1 Oxygen supplementation (This form is maintained as a part of the permanent medical record) 2014 [employer] All Rights Reserved [email or web address] [not provided] MTDD
== END 2019-11-13 14:40 | disposition home or self-care (01) | DRG 193 ==
LOC: ERS 08:27 → T4-B 10:55
PROVIDERS: ADMIT Internal Medicine; ATTEND Internal Medicine
DX: J18.9 Pneumonia, unspecified organism (principal); J96.01 Acute respiratory failure with hypoxia; I21.A1 Myocardial infarction type 2; E87.1 Hypo-osmolality and hyponatremia; J44.1 Chronic obstructive pulmonary disease with (acute) exacerbation; J44.0 Chronic obstructive pulmonary disease with (acute) lower respiratory infection; I10 Essential (primary) hypertension; F17.210 Nicotine dependence, cigarettes, uncomplicated; I27.20 Pulmonary hypertension, unspecified; J20.9 Acute bronchitis, unspecified; D75.89 Other specified diseases of blood and blood-forming organs; Z79.899 Other long term (current) drug therapy; Z90.710 Acquired absence of both cervix and uterus; Z88.8 Allergy status to other drugs, medicaments and biological substances
CPT/HCPCS: 36415; 80048; 80053; 82553; 85025; 93005; 93306; 94640; 96361; 96365; J0360; J0456; J0696; J1650; J2920; J3490; J7050; J7620

== ENCOUNTER 2021-01-10 17:53 | Inpatient (IN) | payer BC ==
[~2021-01-10 17:53] MED LIST: Iopamidol 370 76% 100 ML VIAL ONE
[2021-01-10 18:12] LABS: Actual Bicarbonate (HCO3a) 28.8 mEq/L (22-28); Analyzer IN Cardio ER; Base Excess (BEa) -0.6 mEq/L (-2.0 to +3.0); Calcium, Ionized (arterial) 1.12 mmol/L (1.12-1.30); Carboxyhemoglobin (COHb) 2.8 gm% (0.0-3.0); Hemoglobin (Hb) 14.2 g/dL (12.0-16.0); O2 Tension (PaO2), arterial 62.9 mmHg (> 80.0); Potassium - ABG Lab 4.54 mmol/L (3.70-5.30)
[2021-01-10] MEDS ORDERED: Azithromycin 500 MG VIAL ONE (18:12)
[2021-01-10 18:13] LABS: CO2 Tension 70.3 mmHg (35.0-45.0); pH, Arterial 7.23 (7.35-7.45)
[2021-01-10 18:14] LABS: ALV-art Gradient 312.675 mmHg (0-20); Puncture Site RBA
[2021-01-10] MEDS ORDERED: Albuterol Sulfate 2.5 mg/3 ml Neb ONE ×2 (18:17)
[2021-01-10] MEDS ORDERED: Ondansetron PF 4 MG/2 ML Vial IVP PRN (20:04)
[2021-01-10] MEDS ORDERED: Albuterol Sulfate 2.5 mg/3 ml Neb NEB PRN (20:07)
[2021-01-10 20:56] LABS: Lactic Acid 1.8 mmol/L (0.5-2.2)
[2021-01-10 21:26] LABS: Critical Call Chem Troponin I RESULT DECREASING; Troponin I 0.717 ng/mL (< 0.028)
[2021-01-10 21:49] VITALS: BMI 33.5
[2021-01-11 01:41] LABS: Critical Call Chem Troponin I RESULT DECREASING; Troponin I 0.682 ng/mL (< 0.028)
[2021-01-11 04:35] LABS: Anion Gap 14 mmol/L (10-20); BUN (Urea Nitrogen) 29 mg/dL (9.8-20.1); Calc. Creatinine Clearance 97 mL/min (70-130); Calcium 8.7 mg/dL (7.8-10.44); Carbon Dioxide 29 mmol/L (23-31); Chloride 94 mmol/L (98-107); Glucose 112 mg/dL (80-115); Potassium 4.3 mmol/L (3.5-5.1); Sodium 133 mmol/L (136-145)
[2021-01-11 04:42] LABS: Band 15 % (5-11); Hemoglobin 13.2 g/dL (12.0-16.0); Lymphocytes 2 % (21-51); MDiff Complete? YES; Macrocytosis SLIGHT = 6-15 cells (100X) (0-5/hpf); Mean Corpuscular HGB CONC 32.4 g/dL (32.0-36.0); Mean Corpuscular Hemoglobin 33.2 pg (27.0-31.0); Mean Platelet Volume 8.6 fL (7.4-10.4); Monocytes 26 % (0-10); Neutrophil 57 % (42-75); Platelet Count 205 thou/uL (130-400); Platelet Morphology Comment Appears Adequate; RBC Distribution Width 11.6 % (11.5-14.5); Red Blood Cell (RBC) Count 3.98 mill/uL (4.20-5.40); White Blood Cell (WBC) Count 17.3 thou/uL (4.8-10.8)
[2021-01-11] MEDS ORDERED: methylPREDNISolone Sod Succ 40 MG VIAL IVP SCH (06:00)
[2021-01-11] MEDS: Acetaminophen 325 MG TAB PO PRN (08:09)
[2021-01-11] MEDS: Enoxaparin Sodium 40 MG/0.4 ML SYRINGE SC SCH (08:10)
[2021-01-11] MEDS: methylPREDNISolone Sod Succ 40 MG VIAL IVP SCH ×3 (13:03→23:09)
[2021-01-11] MEDS ORDERED: cefTRIAXone\\ROCEPHIN 2 GM in Sodium Chloride 0.9% 100 ML IVPB SCH (16:00)
[2021-01-11] MEDS: Azithromycin 500 MG in Sodium Chloride 0.9% 250 ML 250 ML IVPB SCH (17:27)
[2021-01-11] MEDS: traMADol HCl 50 MG TAB PO PRN (17:29)
[2021-01-11] MEDS: Mometasone 100 MCG/Formoterol 5 MCG 120 PUFF INHALER INH SCH (19:32)
[2021-01-11] MEDS: Metoprolol Tartrate 50 MG TAB PO SCH (20:22)
[2021-01-11] MEDS: Amlodipine 10 MG TAB PO SCH (20:22)
[2021-01-11] MEDS: Mometasone 200 MCG/Formoterol 5 MCG 120 PUFF INHALER INH SCH (21:58)
[2021-01-11] MEDS: Cefepime 2 GM in Sodium Chloride 0.9% 100 ML IVPB SCH (22:35)
[2021-01-11] MEDS: Melatonin 3 MG TAB PO SCH (23:09)
[2021-01-12 03:43] LABS: Anion Gap 12 mmol/L (10-20); BUN (Urea Nitrogen) 29 mg/dL (9.8-20.1); Calc. Creatinine Clearance 104 mL/min (70-130); Carbon Dioxide 27 mmol/L (23-31); Chloride 98 mmol/L (98-107); Glucose 121 mg/dL (80-115); Potassium 4.3 mmol/L (3.5-5.1); Sodium 133 mmol/L (136-145)
[2021-01-12 04:07] LABS: Band 28 % (5-11); Hemoglobin 12.4 g/dL (12.0-16.0); Lymphocytes 6 % (21-51); MDiff Complete? YES; Mean Corpuscular HGB CONC 31.9 g/dL (32.0-36.0); Mean Corpuscular Hemoglobin 32.9 pg (27.0-31.0); Mean Platelet Volume 8.8 fL (7.4-10.4); Monocytes 7 % (0-10); Myelocyte 2 % (0-0); Neutrophil 57 % (42-75); Platelet Count 190 thou/uL (130-400); Platelet Morphology Comment Appears Adequate; RBC Distribution Width 11.8 % (11.5-14.5); Red Blood Cell (RBC) Count 3.78 mill/uL (4.20-5.40); White Blood Cell (WBC) Count 20.4 thou/uL (4.8-10.8)
[2021-01-12] MEDS: traMADol HCl 50 MG TAB PO PRN ×2 (04:29→14:07)
[2021-01-12] MEDS: Acetaminophen 325 MG TAB PO PRN ×2 (04:32→14:08)
[2021-01-12] MEDS: methylPREDNISolone Sod Succ 40 MG VIAL IVP SCH ×3 (05:44→17:10)
[2021-01-12] MEDS: Cefepime 2 GM in Sodium Chloride 0.9% 100 ML IVPB SCH ×2 (08:10→20:53)
[2021-01-12] MEDS: Enoxaparin Sodium 40 MG/0.4 ML SYRINGE SC SCH (08:10)
[2021-01-12] MEDS: Metoprolol Tartrate 100 MG TAB PO SCH (08:11)
[2021-01-12] MEDS ORDERED: Non-Formulary Item 1 EACH (Fluticasone/Vilanterol [Breo Ellipta] 100 MCG/25 MCG Blst.W.De INH SCH (09:00)
[2021-01-12] MEDS: Mometasone 100 MCG/Formoterol 5 MCG 120 PUFF INHALER INH SCH (09:10)
[2021-01-12] MEDS: Mometasone 200 MCG/Formoterol 5 MCG 120 PUFF INHALER INH SCH ×2 (11:02→19:01)
[2021-01-12] MEDS: Azithromycin 500 MG in Sodium Chloride 0.9% 250 ML 250 ML IVPB SCH (17:10)
[2021-01-12] MEDS: Melatonin 3 MG TAB PO SCH (20:52)
[2021-01-12] MEDS: Amlodipine 10 MG TAB PO SCH (20:53)
[2021-01-12] MEDS: Metoprolol Tartrate 50 MG TAB PO SCH (20:53)
[2021-01-13] MEDS: methylPREDNISolone Sod Succ 40 MG VIAL IVP SCH ×2 (00:18→05:40)
[2021-01-13] MEDS: traMADol HCl 50 MG TAB PO PRN ×4 (00:22→21:07)
[2021-01-13 04:25] LABS: Anion Gap 16 mmol/L (10-20); BUN (Urea Nitrogen) 22 mg/dL (9.8-20.1); Calc. Creatinine Clearance 114 mL/min (70-130); Calcium 9.2 mg/dL (7.8-10.44); Carbon Dioxide 26 mmol/L (23-31); Chloride 99 mmol/L (98-107); Glucose 122 mg/dL (80-115); Potassium 4.2 mmol/L (3.5-5.1); Sodium 137 mmol/L (136-145)
[2021-01-13 04:30] LABS: Band 11 % (5-11); Hemoglobin 12.9 g/dL (12.0-16.0); Lymphocytes 6 % (21-51); MDiff Complete? YES; Macrocytosis SLIGHT = 6-15 cells (100X) (0-5/hpf); Mean Corpuscular HGB CONC 32.1 g/dL (32.0-36.0); Mean Corpuscular Hemoglobin 32.8 pg (27.0-31.0); Mean Platelet Volume 8.9 fL (7.4-10.4); Monocytes 27 % (0-10); Neutrophil 51 % (42-75); Platelet Count 182 thou/uL (130-400); Platelet Morphology Comment Appears Adequate; RBC Distribution Width 11.9 % (11.5-14.5); Reactive Lymphocytes 5 % (0-10); Red Blood Cell (RBC) Count 3.95 mill/uL (4.20-5.40); White Blood Cell (WBC) Count 23.6 thou/uL (4.8-10.8)
[2021-01-13] MEDS: Mometasone 200 MCG/Formoterol 5 MCG 120 PUFF INHALER INH SCH ×2 (06:56→19:13)
[2021-01-13] MEDS: Metoprolol Tartrate 100 MG TAB PO SCH (08:09)
[2021-01-13] MEDS: Cefepime 2 GM in Sodium Chloride 0.9% 100 ML IVPB SCH ×2 (08:09→20:25)
[2021-01-13] MEDS: Enoxaparin Sodium 40 MG/0.4 ML SYRINGE SC SCH (08:09)
[2021-01-13] MEDS ORDERED: Furosemide 20 MG/2 ML VIAL SLOW IVP SCH (14:15)
[2021-01-13] MEDS ORDERED: hydrALAZINE 25 MG TAB PO SCH (14:30)
[2021-01-13] MEDS: predniSONE 20 MG TAB PO SCH (16:55)
[2021-01-13] MEDS: Amlodipine 10 MG TAB PO SCH (20:24)
[2021-01-13] MEDS: Doxycycline 100 MG CAP PO SCH (20:24)
[2021-01-13] MEDS: Melatonin 3 MG TAB PO SCH (20:25)
[2021-01-13] MEDS: hydrALAZINE 25 MG TAB PO SCH (20:25)
[2021-01-13] MEDS: Metoprolol Tartrate 50 MG TAB PO SCH (20:26)
[2021-01-14 04:15] LABS: Anion Gap 15 mmol/L (10-20); BUN (Urea Nitrogen) 22 mg/dL (9.8-20.1); Calc. Creatinine Clearance 100 mL/min (70-130); Carbon Dioxide 30 mmol/L (23-31); Chloride 96 mmol/L (98-107); Glucose 107 mg/dL (80-115); Potassium 3.7 mmol/L (3.5-5.1); Sodium 137 mmol/L (136-145)
[2021-01-14 04:46] LABS: Band 9 % (5-11); Hemoglobin 13.6 g/dL (12.0-16.0); Lymphocytes 9 % (21-51); MDiff Complete? YES; Mean Corpuscular Hemoglobin 32.4 pg (27.0-31.0); Mean Platelet Volume 9.1 fL (7.4-10.4); Metamyelocyte 2 % (0-0); Monocytes 12 % (0-10); Myelocyte 5 % (0-0); Neutrophil 63 % (42-75); Platelet Count 181 thou/uL (130-400); White Blood Cell (WBC) Count 24.3 thou/uL (4.8-10.8)
[2021-01-14] MEDS: traMADol HCl 50 MG TAB PO PRN ×3 (06:09→21:13)
[2021-01-14] MEDS: Mometasone 200 MCG/Formoterol 5 MCG 120 PUFF INHALER INH SCH ×2 (07:05→18:37)
[2021-01-14] MEDS: Enoxaparin Sodium 40 MG/0.4 ML SYRINGE SC SCH (08:18)
[2021-01-14] MEDS: Metoprolol Tartrate 100 MG TAB PO SCH (08:18)
[2021-01-14] MEDS: predniSONE 20 MG TAB PO SCH ×2 (08:18→17:09)
[2021-01-14] MEDS: Cefepime 2 GM in Sodium Chloride 0.9% 100 ML IVPB SCH ×2 (08:19→21:12)
[2021-01-14] MEDS: Doxycycline 100 MG CAP PO SCH ×2 (08:19→21:15)
[2021-01-14] MEDS: hydrALAZINE 25 MG TAB PO SCH ×2 (08:19→21:14)
[2021-01-14] MEDS: Acetaminophen 325 MG TAB PO PRN (18:14)
[2021-01-14] MEDS: Metoprolol Tartrate 50 MG TAB PO SCH (21:13)
[2021-01-14] MEDS: Melatonin 3 MG TAB PO SCH (21:14)
[2021-01-14] MEDS: Amlodipine 10 MG TAB PO SCH (21:15)
[2021-01-15] MEDS: traMADol HCl 50 MG TAB PO PRN ×3 (05:06→21:59)
[2021-01-15] MEDS: Mometasone 200 MCG/Formoterol 5 MCG 120 PUFF INHALER INH SCH ×2 (07:29→18:23)
[2021-01-15] MEDS: Cefepime 2 GM in Sodium Chloride 0.9% 100 ML IVPB SCH (08:38)
[2021-01-15] MEDS: Metoprolol Tartrate 100 MG TAB PO SCH (08:39)
[2021-01-15] MEDS: hydrALAZINE 25 MG TAB PO SCH ×3 (08:40→21:58)
[2021-01-15] MEDS: Enoxaparin Sodium 40 MG/0.4 ML SYRINGE SC SCH (08:40)
[2021-01-15] MEDS: Doxycycline 100 MG CAP PO SCH ×2 (08:40→20:59)
[2021-01-15] MEDS: predniSONE 20 MG TAB PO SCH ×2 (08:51→16:15)
[2021-01-15 09:01] LABS: Mean Corpuscular Hemoglobin 32.1 pg (27.0-31.0); Mean Platelet Volume 8.9 fL (7.4-10.4); Platelet Count 205 thou/uL (130-400); RBC Distribution Width 11.9 % (11.5-14.5); Red Blood Cell (RBC) Count 4.37 mill/uL (4.20-5.40); White Blood Cell (WBC) Count 25.7 thou/uL (4.8-10.8)
[2021-01-15 09:32] LABS: Band 26 % (5-11); Eosinophils 1 % (0-10); Lymphocytes 5 % (21-51); MDiff Complete? YES; Metamyelocyte 5 % (0-0); Monocytes 5 % (0-10); Neutrophil 51 % (42-75); Reactive Lymphocytes 7 % (0-10)
[2021-01-15] MEDS ORDERED: Fluconazole 100 MG TAB PO SCH (13:45)
[2021-01-15] MEDS ORDERED: valACYclovir 500 MG TAB PO SCH (16:45)
[2021-01-15] MEDS: Cefdinir 300 MG CAP PO SCH (20:59)
[2021-01-15] MEDS: Melatonin 3 MG TAB PO SCH (20:59)
[2021-01-15] MEDS: valACYclovir 500 MG TAB PO SCH (21:04)
[2021-01-15] MEDS: Amlodipine 10 MG TAB PO SCH (21:57)
[2021-01-15] MEDS: Metoprolol Tartrate 50 MG TAB PO SCH (21:58)
[2021-01-16] MEDS: Mometasone 200 MCG/Formoterol 5 MCG 120 PUFF INHALER INH SCH ×2 (07:41→18:20)
[2021-01-16 07:51] LABS: Mean Corpuscular HGB CONC 32.5 g/dL (32.0-36.0); Mean Corpuscular Hemoglobin 32.4 pg (27.0-31.0); Mean Corpuscular Volume 99.7 fL (78.0-98.0); Mean Platelet Volume 9.1 fL (7.4-10.4); Platelet Count 232 thou/uL (130-400); RBC Distribution Width 12.2 % (11.5-14.5); Red Blood Cell (RBC) Count 4.33 mill/uL (4.20-5.40); White Blood Cell (WBC) Count 25.3 thou/uL (4.8-10.8)
[2021-01-16] MEDS: valACYclovir 500 MG TAB PO SCH ×2 (09:24→21:15)
[2021-01-16] MEDS: hydrALAZINE 25 MG TAB PO SCH ×3 (09:24→21:09)
[2021-01-16] MEDS: predniSONE 20 MG TAB PO SCH ×2 (09:25→16:58)
[2021-01-16] MEDS: Fluconazole 100 MG TAB PO SCH (09:25)
[2021-01-16] MEDS: Doxycycline 100 MG CAP PO SCH ×2 (09:25→21:09)
[2021-01-16] MEDS: Cefdinir 300 MG CAP PO SCH ×2 (09:25→21:09)
[2021-01-16] MEDS: Metoprolol Tartrate 100 MG TAB PO SCH (09:26)
[2021-01-16] MEDS: Enoxaparin Sodium 40 MG/0.4 ML SYRINGE SC SCH (09:26)
[2021-01-16] MEDS: traMADol HCl 50 MG TAB PO PRN ×2 (09:29→21:14)
[2021-01-16] MEDS: Amlodipine 10 MG TAB PO SCH (21:09)
[2021-01-16] MEDS: Metoprolol Tartrate 50 MG TAB PO SCH (21:09)
[2021-01-16] MEDS: Melatonin 3 MG TAB PO SCH (21:14)
[2021-01-17] MEDS: Mometasone 200 MCG/Formoterol 5 MCG 120 PUFF INHALER INH SCH (07:15)
[2021-01-17 07:26] VITALS: BP 125/86; TEMP 97
[2021-01-17] MEDS: valACYclovir 500 MG TAB PO SCH (08:01)
[2021-01-17] MEDS: Cefdinir 300 MG CAP PO SCH (08:01)
[2021-01-17] MEDS: Doxycycline 100 MG CAP PO SCH (08:01)
[2021-01-17] MEDS: Fluconazole 100 MG TAB PO SCH (08:01)
[2021-01-17] MEDS: predniSONE 20 MG TAB PO SCH (08:01)
[2021-01-17] MEDS: Enoxaparin Sodium 40 MG/0.4 ML SYRINGE SC SCH (08:01)
[2021-01-17] MEDS: hydrALAZINE 25 MG TAB PO SCH ×2 (08:01→15:00)
[2021-01-17] MEDS: Metoprolol Tartrate 100 MG TAB PO SCH (08:07)
[2021-01-17 10:18] LABS: Hemoglobin 13.7 g/dL (12.0-16.0); Mean Corpuscular HGB CONC 30.5 g/dL (32.0-36.0); Mean Corpuscular Hemoglobin 30.6 pg (27.0-31.0); Mean Platelet Volume 9.1 fL (7.4-10.4); Platelet Count 259 thou/uL (130-400); RBC Distribution Width 12.2 % (11.5-14.5); Red Blood Cell (RBC) Count 4.47 mill/uL (4.20-5.40); White Blood Cell (WBC) Count 23.6 thou/uL (4.8-10.8)
[2021-01-17 10:38] LABS: Anion Gap 16 mmol/L (10-20); BUN (Urea Nitrogen) 16 mg/dL (9.8-20.1); Calc. Creatinine Clearance 101 mL/min (70-130); Calcium 8.6 mg/dL (7.8-10.44); Carbon Dioxide 26 mmol/L (23-31); Chloride 97 mmol/L (98-107); Glucose 192 mg/dL (80-115); Potassium 3.8 mmol/L (3.5-5.1); Sodium 135 mmol/L (136-145)
[2021-01-18] MEDS ORDERED: predniSONE 20 MG TAB PO SCH (09:00)
== END 2021-01-17 16:04 | disposition home or self-care (01) | DRG 871 ==
LOC: ERS 17:53 → IMCU/EMU 19:18 → T4-B 01-14 18:26
PROVIDERS: ADMIT Internal Medicine; ATTEND Internal Medicine
PROC: 5A09457 Assistance with Respiratory Ventilation, 24-96 Consecutive Hours, Continuous Positive Airway Pressure (ICD-10-PCS; principal; 2021-01-10)
DX: A41.9 Sepsis, unspecified organism (principal); J96.01 Acute respiratory failure with hypoxia; Z20.822 Contact with and (suspected) exposure to COVID-19; J15.4 Pneumonia due to other streptococci; I21.A1 Myocardial infarction type 2; J96.02 Acute respiratory failure with hypercapnia; J44.1 Chronic obstructive pulmonary disease with (acute) exacerbation; J44.0 Chronic obstructive pulmonary disease with (acute) lower respiratory infection; E87.1 Hypo-osmolality and hyponatremia; I50.32 Chronic diastolic (congestive) heart failure; E87.2 Acidosis; B00.1 Herpesviral vesicular dermatitis; E27.8 Other specified disorders of adrenal gland; F17.210 Nicotine dependence, cigarettes, uncomplicated; D72.829 Elevated white blood cell count, unspecified; T38.0X5A Adverse effect of glucocorticoids and synthetic analogues, initial encounter; I11.0 Hypertensive heart disease with heart failure; Z99.81 Dependence on supplemental oxygen; Z88.3 Allergy status to other anti-infective agents; Z88.8 Allergy status to other drugs, medicaments and biological substances; Z79.899 Other long term (current) drug therapy; Z79.51 Long term (current) use of inhaled steroids; Z83.6 Family history of other diseases of the respiratory system; Z90.710 Acquired absence of both cervix and uterus
CPT/HCPCS: 36415; 36600; 71045; 71275; 80048; 82805; 83605; 84484; 85025; 85027; 85379; 87070; 87077; 87186; 87205; 93306; 94150; 94640; 94660; 94760; 96365; J0456; J0692; J1650; J1940; J2920; J3490; J7050; J7512; J7611; J7620; Q9967